=== PATIENT | male | born 1995 | race Caucasian/White ===

== ENCOUNTER 2024-11-23 17:29 | Emergency (ER) | payer SELFPAY ==
[2024-11-23 17:35] VITALS: BP 136/81; PULSE 102; TEMP 37.3; O2SAT 94; BMI 25.8
[2024-11-23 17:49] VITALS: O2SAT 95
[2024-11-23] MEDS: MAGNESIUM CITRATE 296 ML SOLUTION PO (18:06)
--- NOTE | 2024-11-23 18:27 | ED_ITS ---
HPI HPI - General Adult General Chief complaint: Abdominal Pain Stated complaint: IRREGULAR BOWEL MOVEMENT, PAIN BELOW BUTT CHECK Time Seen by Provider: 11/23/24 17:32 Source: patient Mode of arrival: walk-in History of Present Illness HPI narrative: The patient is coming to the ER with a bilateral hip pain that been going on at least for few days that he recently started a job where he have to sit down for a long period of time, he mentioned that he started having some pain and he was evaluated in urgent care for possible sciatic pain although the pain does not go down his leg and just stays in the hip area bilaterally, the patient denies any fall trauma or any weakness numbness or any other concerns The patient mentioned that he has been having constipation for the last few days mostly having small bowel movement and feeling distended although there is no nausea no vomiting and there is a normal appetite The patient have no abdominal pain at any time he does not have any history of hemorrhoids The patient admits that every time he sit down on the table to see if it hurts because of his hip pain Related Data Previous Rx's ?Medication ?Instructions ?Recorded bisacodyl 5 mg tablet,delayed 5 mg PO DAILY PRN consti pation #10 11/23/24 release (Dulcolax (bisacodyl)) tabs meloxicam 15 mg tablet 15 mg PO DAILY PRN pain #20 tabs 11/23/24 Allergies Allergy/AdvReac Type Severity Reaction Status Date / Time No Known Drug Allergies Allergy Verified 11/23/24 17:35 Opioid HPI Opioid Management Most Recent Opioid Data: Last Pain Scale 4 Today, 17:45 Review of Systems ROS Status of ROS 10 or more systems reviewed and unremark able except as noted in history and below PFSH PFSH Social History Little interest or pleasure in doing things: not at all Feeling down, depressed, or hopeless: not at all Exam Narrative Exam Narrative: Nurses notes and vital signs reviewed and patient is not hypoxic. General: Well-appearing and in no apparent distress. Skin: Warm, dry, no pallor noted. No rash. Head: Normocephalic, atraumatic. Neck: Supple, non-tender. Eye: Pupils are equal, round and EOMI. No scleral icterus. Ears, Nose, Mouth, and Throat: TM are clear, no nasal mucosal hypertrophy. Oral mucosa is moist, no posterior oropharynx erythema, uvula is mid-line Cardiovascular: Regular Rate and Rhythm without murmur, gallop or rub. Respiratory: No accessory muscle use or respiratory distress. Lungs are clear to auscultation, no wheezing, rales or rhonchi Chest Wall: no tenderness Back: No midline thoracic or lumbar vertebral tenderness. No CVA tenderness Musculoskeletal: normal ROM, no calf or popliteal tenderness, there is tenderness upon palpation of the bilateral hip posteriorly Abdomen: Abdominal examination showed no tenderness on palpation: Constitutional Vital Signs, click to edit/add: Last Vital Signs Temp 99.1 F 11/23/24 17:35 Pulse 102 H 11/23/24 17:35 Resp 16 11/23/24 17:35 BP 136/81 11/23/24 17:35 Pulse Ox 95 11/23/24 17:49 O2 Del Method Room Air 11/23/24 17:49 Course Vital Signs Vital signs: Vital Signs Temperature 99.1 F 11/23/24 17:35 Pulse Rate 102 H 11/23/24 17:35 Respiratory Rate 16 11/23/24 17:35 Blood Pressure 136/81 11/23/24 17:35 Pulse Oximetry 94 L 11/23/24 17:35 Oxygen Delivery Method Room Air 11/23/24 17:35 Temperature 99.1 F 11/23/24 17:35 Pulse Rate 102 H 11/23/24 17:35 Respiratory Rate 16 11/23/24 17:35 Blood Pressure 136/81 11/23/24 17:35 Pulse Oximetry 95 11/23/24 17:49 Oxygen Delivery Method Room Air 11/23/24 17:49 Medical Decision Making [facility] Narrative Medical decision making narrative: The patient have 2 issues the first is the fact that he have bilateral hip pain mostly bursitis for that he will continue taking his prednisone I added Mobic and I stopped his Flexeril The patient constipation could be secondary to Flexeril he does not have any symptom of possible obstruction there is no pain there is no nausea or vomiting The MiraLAX was not working and he was provided with magnesium citrate to take right now and he will be provided with Dulcolax to take daily just to help with having bowel movement daily The patient also instructed about the importance of walking around regularly and not sitting in his car for long period of time without moving around, also providing soft cushion to sit on and he was provided with Mobic prescription after he did not want the Toradol injection The patient is to follow up with primary care physician in next 2-3 days or to return to the emergency department should any of the signs or symptoms worsen or new symptoms develop. The patient agrees with the following Diagnosis and Treatment plan and the patient will be discharged home. Discharge Plan Discharge Chief Complaint: Abdominal Pain Clinical Impression: Constipation Bursitis Qualifiers: Bursitis location: hip Hip bursitis location: trochanteric bursitis Laterality: bilateral Qualified Code(s): M70.61 - Trochanteric bursitis, right hip Patient Disposition: Home, Self-Care Time of Disposition Decision: 18:02 Condition: Good Prescriptions / Home Meds: New bisacodyl [Dulcolax (bisacodyl)] 5 mg tablet,delayed release (DR/EC) 5 mg PO DAILY PRN (Reason: constipation) Qty: 10 0RF meloxicam 15 mg tablet 15 mg PO DAILY PRN (Reason: pain) Qty: 20 0RF Discontinued cyclobenzaprine 10 mg tablet 10 mg PO BID PRN (Reason: pain) Print Language: German Instructions: Constipation (DC), Hip Bursitis (ED) Referrals: Physician,Non-Staff, [Primary Care Provider] - 1 week Abdirahman Hollis MD [Physician] - 1 week Referral Note: Address: [address] [place] [address] Arleen Spicer, [place] [address] Discharge Date/Time: 11/23/24 18:17
== END 2024-11-23 18:17 | disposition home or self-care (01) ==
PROVIDERS: Emergency Provider Emergency Medicine
DX: M70.62 Trochanteric bursitis, left hip (principal); M70.61 Trochanteric bursitis, right hip; K59.00 Constipation, unspecified
CPT/HCPCS: 99283